=== PATIENT | male | born 1975 | race African-American/Black ===

== ENCOUNTER 2020-06-17 05:22 | Emergency (ER) | payer MEDICAID ==
[~2020-06-17] VITALS: Ht 182.9 cm; Wt 83.9 kg
--- NOTE | 2020-06-17 05:25 | NUR ---
PT AAOX4. AMBULATORY WITH STEADY GAIT. BIBEMS C/O ABDOMINAL PAIN SINCE LAST NIGHT. PLACED IN BED 12 ON MONITOR AND PULSE OX. AWAITING ER MD FOR EVAL AND ORDERS.
--- NOTE | 2020-06-17 05:51 | NUR ---
MANAGER INVENTORY MANAGEMENT AT BEDSIDE FOR BLOOD WORK.
--- NOTE | 2020-06-17 05:55 | NUR ---
URINE COLLECTED, SENT TO LAB.
[2020-06-17 06:03] LABS: BILIRUBIN,URINE NEGATIVE (NEGATIVE); COLOR,URINE YELLOW (YELLOW); LEUKOCYTE ESTERASE ,URINE NEGATIVE (NEGATIVE); NITRITE, URINE NEGATIVE (NEGATIVE); PROTEIN,URINE 30 mg/dl (NEGATIVE); UGLUCOSE 100 MG/DL mg/dL (NEGATIVE); UROBILINOGEN,URINE 0.2 EU/dL (0.2)
[2020-06-17 06:14] LABS: BASOPHILS # (AUTO) 0.1 /CMM (0.0-0.2); BASOPHILS % (AUTO) 0.6 % (0.0-2.0); EOSINOPHILS % (AUTO) 0.6 % (0.0-6.0); HEMATOCRIT 45 % (39-51); HEMOGLOBIN 16.1 g/dL (13.5-17.5); LYMPHOCYTES # (AUTO) 1.6 /CMM (0.8-4.8); LYMPHOCYTES % (AUTO) 17.5 % (20.0-44.0); MEAN CORPUSCULAR HGB CONC 35 g/dl (31.0-36.0); MEAN CORPUSCULAR VOLUME 88 fL (80-96); MONOCYTES % (AUTO) 10.7 % (2.0-12.0); NEUTROPHILS # (AUTO) 6.4 /CMM (1.8-8.9); NEUTROPHILS % (AUTO) 70.6 % (43.0-81.0); PLATELET COUNT (AUTO) 203 /CMM (150-450); RED BLOOD CELL COUNT(AUTO) 5.19 MIL/uL (4.5-6.0)
[2020-06-17] MEDS ORDERED: ONDANSETRON 4 MG TAB.RAPDIS ONE (06:34)
[2020-06-17] MEDS ORDERED: LIDOCAINE VISCOUS 2% UD 15 ML UDC ONE (06:34)
[2020-06-17] MEDS ORDERED: FAMOTIDINE (20 MG) 20 MG TABLET ONE (06:34)
[2020-06-17] MEDS ORDERED: MAG HYDROX/AL HYDROX/SIMETH 30 ML UDC ONE (06:34)
[2020-06-17] MEDS: MAG HYDROX/AL HYDROX/SIMETH 30 ML UDC PO ONE (06:40)
[2020-06-17] MEDS: LIDOCAINE VISCOUS 2% UD 15 ML UDC MM ONE (06:40)
[2020-06-17] MEDS: FAMOTIDINE (20 MG) 20 MG TABLET PO ONE (06:40)
[2020-06-17] MEDS: ONDANSETRON 4 MG TAB.RAPDIS SL ONE (06:40)
[2020-06-17 06:47] LABS: BACTERIA,URINE None seen /HPF (None Seen); SQUAMOUS EPITHELIAL CELL,UR Few /HPF (None Seen); WBC,URINE 0-2 /HPF (0-3)
[2020-06-17 06:51] LABS: CALCIUM, SERUM 9.7 mg/dL (8.5-10.1); CREATININE 1.1 mg/dL (0.6-1.3); POTASSIUM 3.3 mmol/L (3.5-5.1)
[2020-06-17 06:58] LABS: ALBUMIN 4.6 g/dL (3.4-5.0); BILIRUBIN,DIRECT 0.3 mg/dL (0.0-0.2); TOTAL PROTEIN, SERUM 8.6 g/dL (6.4-8.2)
[2020-06-17] MEDS ORDERED: FAMO-131 PO (07:32)
[2020-06-17] MEDS ORDERED: ONDA4TAB5 PO (07:32)
[2020-06-17 07:48] VITALS: BP 152/92
--- NOTE | 2020-06-17 07:48 | NUR ---
Patient discharged to home in stable condition. Written and verbal after care instructions given. Patient verbalizes understanding of instruction. Pt ambulatory with a steady gait
== END 2020-06-17 07:50 | disposition home or self-care (01) ==
LOC: ER 05:27
DX: R10.13 Epigastric pain (principal); F15.10 Other stimulant abuse, uncomplicated; R11.2 Nausea with vomiting, unspecified; F10.10 Alcohol abuse, uncomplicated; Y90.0 Blood alcohol level of less than 20 mg/100 ml; Z59.0 Homelessness
CPT/HCPCS: 36415; 80048; 80076; 80307; 80320; 81001; 83690; 85025; 99284; Q0162; G0480